=== PATIENT | female | born 1965 | race Caucasian/White ===

== ENCOUNTER 2016-11-23 18:41 | Emergency (ER) | payer BC ==
[2016-11-23 19:18] VITALS: BP 126/79
--- NOTE | 2016-11-23 20:06 | UC ---
Dizzy HPI HPI Summary: PT HERE WITH A MULTITUDE OF COMPLAINTS. HAS HAD 3 WEEKS OF LOW LEVEL DIZZINESS. UPPER BACK PAIN BETWEEN SHOULDER BLADES, LUQ PAIN. PT IS SCHEDULED FOR EGD NEXT WEEK TO EVAL ABD PAIN AND FEELING OF THROAT TIGHTNESS. DENIES DIFFICULTY SWALLOWING LIQUIDS OR SOLIDS. NO CP, NAUSEA, SOB OR SWEATS. ALSO C/O SKIN LESION ON HER BACK AND ON HER RIGHT THIGH. MOM HAD MELANOMA. RAISED, BROWN MOLE RIGHT PROXIMAL THIGH SINCE THE SUMMER. GETTING BIGGER. CYST ON HER BACK FOR ALMOST A YEAR THAT WILL INTERMITTENTLY BECOME INFLAMED AND DRAIN. CURRENTLY NOT INFLAMED OR DRAINING. - History Of Current Complaint Chief Complaint: UCGI Stated Complaint: DIZZY,BACK PAIN,SORE THROAT, BACK PAIN, SPOT ON LE Time Seen by Provider: 11/23/16 19:57 Hx Obtained From: Patient Onset/Duration: Gradual Onset, Lasting Weeks, Still Present Timing: Constant Severity Initially: Moderate Severity Currently: Moderate Pain Intensity: 5 Pain Scale Used: 0-10 Numeric Character: Lightheaded, Dizzy Aggravating Factor(s): Nothing Alleviating Factor(s): Nothing Associated Signs And Symptoms: Negative: Nausea, Vomiting, Diaphoresis, Tinnitus , Chest Pain, SOB, Palpitations, Unsteady Gait, Visual Changes, Decreased Oral Intake, Change In Medication, Change In Diet - Allergies/Home Medications Allergies/Adverse Reactions: Allergies Allergy/AdvReac Type Severity Reaction Status Date / Time No Known Allergies Allergy Verified 11/23/16 19:19 PMH/Surg Hx/FS Hx/Imm Hx Previously Healthy: Yes Cardiovascular History Of: Denies: Pacemaker/ICD Cancer History Of: Denies: Breast Cancer - Surgical History Surgical History: Yes Surgery Procedure, Year, and Place: TONSILECTOMY - Family History Known Family History: Positive: Cardiac Disease - Social History Alcohol Use: None Substance Use Type: Marijuana Smoking Status (MU): Never Smoked Tobacco Review of Systems Constitutional: Negative Skin: Other - SKIN LESIONS Respiratory: Negative Cardiovascular: Negative Gastrointestinal: Abdominal Pain Genitourinary: Negative Musculoskeletal: Other: - UPPER BACK PAIN, NECK PAIN Neurological: Other - DIZZY All Other Systems Reviewed And Are Negative: Yes Physical Exam Triage Information Reviewed: Yes Appearance: Well-Appearing, No Pain Distress, Well-Nourished Vital Signs: Initial Vital Signs Temp 97.4 F 11/23/16 19:12 Pulse 72 11/23/16 19:12 Resp 18 03/22/17 19:12 BP 126/79 11/23/16 19:12 Pulse Ox 100 11/23/16 19:12 Vital Signs Reviewed: Yes Eyes: Positive: Conjunctiva Clear ENT: Positive: Hearing grossly normal, Pharynx normal Neck: Positive: Supple, Nontender, No Lymphadenopathy Respiratory Exam: Normal Cardiovascular Exam: Normal Abdomen Description: Positive: Soft Musculoskeletal: Positive: ROM Intact, No Edema Neurological: Positive: Alert Psychological: Positive: Age Appropriate Behavior Skin: Positive: Other - 5MM RAISED, BROWN MOLE RIGHT PROXIMAL ANTERIOR THIGH. NON TENDER 5MM SUBCU FIRM NODULE MID BACK. NO DRAINAGE. CENTRAL PUNCTUM.. Negative: rashes Dizzy Course/Dx - Differential Dx/Diagnosis Provider Diagnoses: 1. DIZZINESS, NOS. 2. SKIN LESIONS. 3. ABDOMINAL PAIN, NOS. 4. UPPER BACK PAIN Discharge - Discharge Plan Condition: Stable Disposition: HOME Patient Education Materials: Abdominal Pain (ED), Dizziness (ED), Back Pain (ED ), Atypical Mole (ED) Referrals: Stella Garsia INSURANCE PROCESSING CLERK [Primary Care Provider] - As Soon As Possible Additional Instructions: KEEP YOUR GI APPT NEXT WEEK. FOLLOW-UP WITH DERM FOR FURTHER EVALUATION OF YOUR SKIN LESIONS DERMATOLOGY IN [place] Dr. Barbara Diaz. [phone] D[address] IN [place] Dr. Pam Guerra DERMATOLOGY IN [place] DR. DHARMESH GUZMAN [phone] FOLLOW-UP WITH YOUR PCP FOR FURTHER EVALUATION OF DIZZINESS AND BACK PAIN. MAY BE FROM YOUR KNOWN NECK PATHOLOGY AND POOR SLEEP PATTERNS. GO TO ER WITHOUT FAIL IF YOU DEVELOP CHEST PAIN, SHORTNESS OF BREATH, NAUSEA, SWEATS OR ANY OTHER CONCERNING SYMPTOMS.
== END 2016-11-23 20:30 | disposition home or self-care (01) ==
LOC: UCEAST 18:41
DX: R42 Dizziness and giddiness (principal); L98.9 Disorder of the skin and subcutaneous tissue, unspecified; R10.12 Left upper quadrant pain; M54.6 Pain in thoracic spine; F12.90 Cannabis use, unspecified, uncomplicated
CPT/HCPCS: 99212; G0463